=== PATIENT | female | born 1960 | race Caucasian/White ===

== ENCOUNTER 2016-10-14 06:36 | Emergency (ER) | payer MEDICAID, OTHER ==
[~2016-10-14] VITALS: Ht 157.5 cm; Wt 56.8 kg
[~2016-10-14 06:36] MED LIST: ALBU0.63 NEB; FOLI0.4T2 PO; GABA300C10 PO; METH40TA2 PO; ONDA4TAB13 SL; TIOT18CA INH; Vit B 12 PO
[2016-10-14] MEDS ORDERED: ONDANSETRON ODT 4 MG ONE (06:57)
[2016-10-14] MEDS ORDERED: HYDROcodone/APAP 5/325 TABLET ONE (06:58)
[2016-10-14] MEDS ORDERED: HYDROcodone/APAP 5/325 TABLET PO ONE (07:00)
[2016-10-14] MEDS ORDERED: GABAPENTIN 300 MG CAPSULE PO ONE (07:00)
[2016-10-14] MEDS ORDERED: ONDANSETRON ODT 4 MG PO ONE (07:00)
[2016-10-14 07:45] VITALS: BP 103/75
== END 2016-10-14 07:52 | disposition home or self-care (01) ==
LOC: ED 07:01
DX: R11.0 Nausea (principal); G62.9 Polyneuropathy, unspecified
CPT/HCPCS: 99284; Q0162

== ENCOUNTER 2017-02-03 17:47 | Emergency (ER) | payer MEDICAID ==
[~2017-02-03] VITALS: Ht 157.5 cm; Wt 63.3 kg
[2017-02-03 18:35] VITALS: BP 168/95
[2017-02-03] MEDS ORDERED: ALBUTEROL/IPRATROPIUM 2.5MG/0.5MG, 3 ML ONE (18:58)
[2017-02-03] MEDS ORDERED: ALBUTEROL/IPRATROPIUM 2.5MG/0.5MG, 3 ML NPPB ONE (19:00)
[2017-02-03 19:12] LABS: BASOPHILS # (AUTO) 0.04 x10^3/uL (0-0.1); BASOPHILS % (AUTO) 1 % (0-1); EOSINOPHILS # (AUTO) 0.11 x10^3/uL (0-0.4); EOSINOPHILS % (AUTO) 2 % (1-7); LYMPHOCYTES # (AUTO) 3.05 x10^3/uL (1-3.4); LYMPHOCYTES % (AUTO) 41 % (22-44); MD NO; MEAN CORPUSCULAR HEMOGLOBIN 31.3 pg (27.0-34.8); MEAN CORPUSCULAR HGB CONC 33.8 g/dL (32.4-35.8); MEAN CORPUSCULAR VOLUME 92.5 fL (80-100); MEAN PLATELET VOLUME 8.6 fL (7.4-10.4); MONOCYTES # (AUTO) 0.61 x10^3/uL (0.2-0.8); MONOCYTES % (AUTO) 8 % (2-9); NEUTROPHILS # (AUTO) 3.63 x10^3/uL (1.8-6.8); NEUTROPHILS % (AUTO) 49 % (42-75); PLATELET COUNT 168 x10^3/uL (130-400); RED BLOOD COUNT 4.52 x10^6/uL (3.82-5.3); RED CELL DISTRIBUTION WIDTH 13.2 % (9.6-15.2)
[2017-02-03 19:18] LABS: ALBUMIN 3.4 g/dL (3.4-5.0); ANION GAP 6 mmol/L (5-15); CALCIUM 9.1 mg/dL (8.5-10.1); CHLORIDE 112 mmol/L (98-107); CREATININE 1.15 mg/dL (0.55-1.02)
[2017-02-03 19:22] LABS: TROPONIN I < 0.015 ng/mL (0.000-0.045)
[2017-02-03] MEDS ORDERED: HYDROcodone/APAP 5/325 TABLET PO ONE (19:30)
[2017-02-03] MEDS ORDERED: HYDROcodone/APAP 5/325 TABLET ONE (19:49)
== END 2017-02-03 20:30 | disposition home or self-care (01) ==
LOC: ED 20:15
DX: J44.1 Chronic obstructive pulmonary disease with (acute) exacerbation (principal); F17.210 Nicotine dependence, cigarettes, uncomplicated
CPT/HCPCS: 36415; 71020; 80048; 82040; 84484; 85025; 93005; 94640; 99285; J7512; J7620

== ENCOUNTER 2017-11-19 18:06 | Emergency (ER) | payer MEDICARE, MEDICAID ==
[~2017-11-19] VITALS: Ht 157.5 cm; Wt 70.0 kg
[~2017-11-19 18:06] MED LIST changes: +ONDA4TAB10 PO
[2017-11-19] MEDS ORDERED: SODIUM CHLORIDE FLUSH 10ML SYR IVF ONE (18:30)
[2017-11-19 18:58] LABS: BASOPHILS # (AUTO) 0.04 x10^3/uL (0-0.1); BASOPHILS % (AUTO) 0 % (0-1); EOSINOPHILS # (AUTO) 0.12 x10^3/uL (0-0.4); EOSINOPHILS % (AUTO) 1 % (1-7); LYMPHOCYTES # (AUTO) 3.02 x10^3/uL (1-3.4); LYMPHOCYTES % (AUTO) 31 % (22-44); MD NO; MEAN CORPUSCULAR HEMOGLOBIN 31.1 pg (27.0-34.8); MEAN CORPUSCULAR HGB CONC 33.5 g/dL (32.4-35.8); MEAN CORPUSCULAR VOLUME 92.7 fL (80-100); MEAN PLATELET VOLUME 9.3 fL (7.4-10.4); MONOCYTES # (AUTO) 0.73 x10^3/uL (0.2-0.8); MONOCYTES % (AUTO) 7 % (2-9); NEUTROPHILS % (AUTO) 60 % (42-75); PLATELET COUNT 154 x10^3/uL (130-400); RED BLOOD COUNT 4.12 x10^6/uL (3.82-5.3); RED CELL DISTRIBUTION WIDTH 14.6 % (9.6-15.2)
[2017-11-19 19:11] LABS: ALBUMIN 3.1 g/dL (3.4-5.0); ANION GAP 12 mmol/L (5-15); CHLORIDE 108 mmol/L (98-107)
[2017-11-19 19:16] LABS: ALANINE AMINOTRANSFERASE 31 U/L (12-78); ALKALINE PHOSPHATASE 113 U/L (45-117); BILIRUBIN,TOTAL 0.2 mg/dL (0.2-1.0); CREATININE 1.18 mg/dL (0.55-1.02); TOTAL PROTEIN 7.3 g/dL (6.4-8.2)
[2017-11-19 19:26] LABS: MICROSCOPIC INDICATED
[2017-11-19] MEDS ORDERED: MORPHINE SULFATE 4 MG/ML, 1ML IVPush PRN (19:30)
[2017-11-19] MEDS ORDERED: MORPHINE SULFATE 4 MG/ML, 1ML ONE (19:36)
[2017-11-19 19:38] LABS: CULTURE INDICATED? NO
[2017-11-19 21:24] VITALS: BP 139/77
== END 2017-11-19 21:27 | disposition home or self-care (01) ==
LOC: ED 21:10
DX: R19.7 Diarrhea, unspecified (principal); R06.00 Dyspnea, unspecified; J44.9 Chronic obstructive pulmonary disease, unspecified; M19.90 Unspecified osteoarthritis, unspecified site; Z86.19 Personal history of other infectious and parasitic diseases; Z59.0 Homelessness; F17.200 Nicotine dependence, unspecified, uncomplicated
CPT/HCPCS: 36415; 71045; 80053; 81001; 83605; 85025; 93005; 96374

== ENCOUNTER 2017-12-28 14:29 | Emergency (ER) | payer MEDICARE, MEDICAID ==
[~2017-12-28] VITALS: Ht 157.5 cm; Wt 74.2 kg
[2017-12-28] MEDS ORDERED: SODIUM CHLORIDE FLUSH 10ML SYR IVF ONE (15:00)
[2017-12-28 15:26] LABS: BASOPHILS # (AUTO) 0.03 x10^3/uL (0-0.1); BASOPHILS % (AUTO) 0 % (0-1); EOSINOPHILS # (AUTO) 0.25 x10^3/uL (0-0.4); EOSINOPHILS % (AUTO) 4 % (1-7); LYMPHOCYTES # (AUTO) 1.94 x10^3/uL (1-3.4); LYMPHOCYTES % (AUTO) 28 % (22-44); MD NO; MEAN CORPUSCULAR HEMOGLOBIN 31.2 pg (27.0-34.8); MEAN CORPUSCULAR HGB CONC 33.7 g/dL (32.4-35.8); MEAN CORPUSCULAR VOLUME 92.7 fL (80-100); MEAN PLATELET VOLUME 9.3 fL (7.4-10.4); MONOCYTES % (AUTO) 7 % (2-9); NEUTROPHILS # (AUTO) 4.26 x10^3/uL (1.8-6.8); NEUTROPHILS % (AUTO) 61 % (42-75); PLATELET COUNT 166 x10^3/uL (130-400); RED BLOOD COUNT 4.75 x10^6/uL (3.82-5.3); RED CELL DISTRIBUTION WIDTH 13.5 % (9.6-15.2)
[2017-12-28 15:30] LABS: ALANINE AMINOTRANSFERASE 24 U/L (12-78); ALBUMIN 3.4 g/dL (3.4-5.0); ANION GAP 10 mmol/L (5-15); CALCIUM 8.5 mg/dL (8.5-10.1); CHLORIDE 109 mmol/L (98-107); CREATININE 1.31 mg/dL (0.55-1.02)
[2017-12-28] MEDS ORDERED: ACETAMINOPHEN 325 MG TABLET PO ONE (15:30)
[2017-12-28 15:32] LABS: ALKALINE PHOSPHATASE 128 U/L (45-117); BILIRUBIN,TOTAL 0.2 mg/dL (0.2-1.0); TOTAL PROTEIN 7.9 g/dL (6.4-8.2)
[2017-12-28] MEDS ORDERED: ACETAMINOPHEN 500 MG TABLET ONE (15:45)
[2017-12-28 16:13] LABS: CULTURE INDICATED? YES; MICROSCOPIC INDICATED
[2017-12-28] MEDS ORDERED: SODIUM CHLORIDE 0.9% 1,000ML IVBOLUS ONE (16:30)
[2017-12-28] MEDS ORDERED: CEFTRIAXONE PMX 1GM/50ML 50 ML ONE (16:55)
[2017-12-28] MEDS ORDERED: MORPHINE SULFATE 4 MG/ML, 1ML ONE (16:56)
[2017-12-28] MEDS ORDERED: MORPHINE SULFATE 4 MG/ML, 1ML IVPush ONE (17:00)
[2017-12-28] MEDS ORDERED: CEFTRIAXONE PMX 1GM/50ML 50 ML IV ONE (17:00)
[2017-12-28 18:03] VITALS: BP 149/99
== END 2017-12-28 18:22 | disposition home or self-care (01) ==
LOC: ED 18:20
DX: N10 Acute pyelonephritis (principal); N39.0 Urinary tract infection, site not specified; J44.9 Chronic obstructive pulmonary disease, unspecified; Z88.6 Allergy status to analgesic agent
CPT/HCPCS: 36415; 71045; 80053; 81001; 85025; 87086; 93005; 96365; 96375; 99284; J0696; J7030

== ENCOUNTER 2018-01-07 11:35 | Emergency (ER) | payer MEDICARE, MEDICAID ==
[~2018-01-07] VITALS: Ht 157.5 cm; Wt 73.2 kg
[2018-01-07 12:40] LABS: BASOPHILS # (AUTO) 0.05 x10^3/uL (0-0.1); BASOPHILS % (AUTO) 1 % (0-1); EOSINOPHILS # (AUTO) 0.18 x10^3/uL (0-0.4); EOSINOPHILS % (AUTO) 2 % (1-7); LYMPHOCYTES # (AUTO) 2.27 x10^3/uL (1-3.4); LYMPHOCYTES % (AUTO) 29 % (22-44); MD NO; MEAN CORPUSCULAR HEMOGLOBIN 31.5 pg (27.0-34.8); MEAN CORPUSCULAR HGB CONC 33.8 g/dL (32.4-35.8); MEAN PLATELET VOLUME 8.6 fL (7.4-10.4); MONOCYTES # (AUTO) 0.45 x10^3/uL (0.2-0.8); MONOCYTES % (AUTO) 6 % (2-9); NEUTROPHILS # (AUTO) 4.99 x10^3/uL (1.8-6.8); NEUTROPHILS % (AUTO) 63 % (42-75); PLATELET COUNT 187 x10^3/uL (130-400); RED BLOOD COUNT 4.83 x10^6/uL (3.82-5.3); RED CELL DISTRIBUTION WIDTH 13.2 % (9.6-15.2)
[2018-01-07 12:52] LABS: ALANINE AMINOTRANSFERASE 35 U/L (12-78); ALBUMIN 3.7 g/dL (3.4-5.0); ANION GAP 7 mmol/L (5-15); CALCIUM 8.9 mg/dL (8.5-10.1); CHLORIDE 109 mmol/L (98-107); CREATININE 1.11 mg/dL (0.55-1.02)
[2018-01-07 12:54] LABS: ALKALINE PHOSPHATASE 111 U/L (45-117); BILIRUBIN,TOTAL 0.5 mg/dL (0.2-1.0); TOTAL PROTEIN 8.4 g/dL (6.4-8.2)
[2018-01-07] MEDS ORDERED: MORPHINE SULFATE 4 MG/ML, 1ML ONE (13:17)
[2018-01-07 13:20] LABS: CLOSTRIDIUM DIFFICILE ANTIGEN NEGATIVE; CLOSTRIDIUM DIFFICILE TOXIN NEGATIVE (Negative)
[2018-01-07] MEDS: MORPHINE SULFATE 4 MG/ML, 1ML IVPush PRN ×2 (13:28→14:25)
[2018-01-07 14:31] LABS: MICROSCOPIC AUTO
[2018-01-07 14:34] LABS: CULTURE INDICATED? NO
[2018-01-07 16:23] VITALS: BP 132/79
== END 2018-01-07 16:58 | disposition home or self-care (01) ==
LOC: ED 12:52
DX: R19.7 Diarrhea, unspecified (principal); R11.2 Nausea with vomiting, unspecified; J44.9 Chronic obstructive pulmonary disease, unspecified; M19.90 Unspecified osteoarthritis, unspecified site; G62.9 Polyneuropathy, unspecified; N28.9 Disorder of kidney and ureter, unspecified; Z79.82 Long term (current) use of aspirin
CPT/HCPCS: 36415; 80053; 81001; 83690; 85025; 87046; 87252; 87324; 93005; 96374; 96376

== ENCOUNTER 2018-09-16 15:37 | Inpatient (IN) | payer MEDICARE, MEDICAID ==
[~2018-09-16] VITALS: Ht 157.5 cm; Wt 75.4 kg
[2018-09-20 12:50] VITALS: BP 143/82
== END 2018-09-20 17:19 | disposition home health service (06) | DRG 492 ==
LOC: OR 17:56 → EDIP 18:27 → 4NOR 20:25 → DCLOUNGE 09-20 17:00
PROVIDERS: ADMIT Internal Medicine; ATTEND Internal Medicine
PROC: 2W3RX1Z Immobilization of Left Lower Leg using Splint (ICD-10-PCS; 2018-09-16)
PROC: 3E0T3BZ Introduction of Anesthetic Agent into Peripheral Nerves and Plexi, Percutaneous Approach (ICD-10-PCS; principal; 2018-09-18)
PROC: 0QSK04Z Reposition Left Fibula with Internal Fixation Device, Open Approach (ICD-10-PCS; 2018-09-18)
PROC: 0QSH04Z Reposition Left Tibia with Internal Fixation Device, Open Approach (ICD-10-PCS; 2018-09-18)
PROC: 0SSG04Z Reposition Left Ankle Joint with Internal Fixation Device, Open Approach (ICD-10-PCS; 2018-09-18)
DX: S82.842A Displaced bimalleolar fracture of left lower leg, initial encounter for closed fracture (principal); N17.0 Acute kidney failure with tubular necrosis; E86.0 Dehydration; Z71.6 Tobacco abuse counseling; F15.10 Other stimulant abuse, uncomplicated; G62.9 Polyneuropathy, unspecified; J44.9 Chronic obstructive pulmonary disease, unspecified; K72.90 Hepatic failure, unspecified without coma; K83.8 Other specified diseases of biliary tract; M19.90 Unspecified osteoarthritis, unspecified site; N18.2 Chronic kidney disease, stage 2 (mild); W18.30XA Fall on same level, unspecified, initial encounter; X50.1XXA Overexertion from prolonged static or awkward postures, initial encounter; Y92.89 Other specified places as the place of occurrence of the external cause; Z82.49 Family history of ischemic heart disease and other diseases of the circulatory system; Z83.3 Family history of diabetes mellitus; Z85.42 Personal history of malignant neoplasm of other parts of uterus; Z90.49 Acquired absence of other specified parts of digestive tract; Z88.8 Allergy status to other drugs, medicaments and biological substances; Q66.89 Other specified congenital deformities of feet; Z72.0 Tobacco use
CPT/HCPCS: 36415; 71045; 76000; 76700; 80053; 80074; 80307; 85025; 87521; 93005; 96374; 99285; C1713; G0378; J0690; J1100; J1650; J2250; J2405; J2704; J3010; J2270; J2370; J7030

== ENCOUNTER 2019-03-07 17:38 | Emergency (ER) | payer MEDICARE, MEDICAID ==
[~2019-03-07] VITALS: Ht 157.5 cm; Wt 70.5 kg
[~2019-03-07 17:38] MED LIST changes: +ALBU90AE INH; +MELO7.5T31 PO; +OXYC5TAB3 PO; +TRAM50TA2 PO; +[UNRECOGNIZED DRUG - REMARK] INH
[2019-03-07 18:16] VITALS: BP 127/89
[2019-03-07] MEDS ORDERED: PROPARACAINE OPHTH 0.5%, 15ML EACHEYE ONE (18:30)
[2019-03-07] MEDS ORDERED: FLUORESCEIN OPHTHALMIC 1 MG STRIP EACHEYE ONE (18:30)
[2019-03-07] MEDS ORDERED: FLUORESCEIN OPHTHALMIC 1 MG STRIP ONE (18:33)
[2019-03-07] MEDS ORDERED: PROPARACAINE OPHTH 0.5%, 15ML ONE (18:33)
--- NOTE | 2019-03-07 18:34 | NUR ---
PT HERE WITH C/O "EYE PAIN IN BOTH EYES. I CAN'T OPEN THEM OR SEE. I WASHED MY HAIR WITH LICE SHAMPOO AND APPLE CIDER VINEGAR AND NOW THEY BURN SO BAD." MD AT BEDSIDE FOR EXAM.
--- NOTE | 2019-03-07 18:45 | NUR ---
THIS RN TO BEDSIDE, PT STATES "MY EYES FEEL SO MUCH BETTER." AD WOOD.
--- NOTE | 2019-03-07 19:15 | NUR ---
ALL RESULTS BACK AT THIS TIME, CHART UP FOR RECHECK.
--- NOTE | 2019-03-07 20:09 | NUR ---
TECH AT BEDSIDE FOR EYE IRRIGATION.
--- NOTE | 2019-03-07 20:33 | NUR ---
THIS RN AND TECH AT BEDSIDE FOR IRRIGATION WITH JAY LENS. ATTEMPTED TO PLACE LENS AND PT PROMPTLY REMOVED AND SHOUTED AT STAFF "HOW DO YOU EXPECT ME TO DO THAT WITH NO PAIN MEDS, SEDATE ME." PT EDUCATED ON NEED TO IRRIGATE TO REMOVE APPLE CIDER VINEGAR THAT PT PLACED IN EYE LAST NIGHT. THIS RN HELD PT'S EYE LID OPEN WHILE TECH IRRIGATED. PT CONSTANTLY SHOUTING AT STAFF "YOU'RE DROWNING ME, STOP RIGHT NOW I CAN'T TAKE IT. THIS IS MAKING ME HEADACHE SO MUCH WORSE." PT ABLE TO TOLERATE APPROX. 50ML AT A TIME REQUIRING A 5 MINUTE BREAK IN BETWEEN. THIS RN ATTEMPTING TO EDUCATE PT AND PT INTERRUPTING THIS RN STATING "WELL WHAT THE HELL IS TAKING YOU SO LONG, JUST SHUT UP AND DO IT ALREADY." STAFF ATTEMPTED TO IRRIGATE AGAIN WITH THE SAME RESULTS OF PT TOLERATING APPROX. 50 MLS AGAIN. THIS RN AGAIN ATTEMPTED TO IRRIGATE EYES AND PT STATES "YOU'RE NASTY, YOU'RE BEING A BITCH WHO IS STEALING MY PAIN MEDS." PT EDUCATED THAT THE MD DID NOT ORDER ANY PAIN MEDS, PT AGAIN INTERRUPTED THIS RN STATING "YOU REMIND ME OF SOMEONE AND DON'T MAKE ME TELL YOU WHAT I DID TO THEM." THIS RN AND TECH AT BEDSIDE EDUCATED PT THAT STAFF WILL NOT TOLERATE THREATS. THIS RN LEFT ROOM AND GRABBED ANOTHER TECH TO ASSIST WITH IRRIGATION.
--- NOTE | 2019-03-07 20:56 | NUR ---
Patient/Caregiver given discharge instructions and they have confirmed that they understand the instructions. Patient ambulatory with steady gait.
--- NOTE | 2019-03-07 21:00 | NUR ---
REPORT GIVEN TO VITALIY COOK. CARE TRANSFERRED.
== END 2019-03-07 21:23 | disposition home or self-care (01) ==
LOC: ED 18:00
DX: H10.213 Acute toxic conjunctivitis, bilateral (principal); J44.9 Chronic obstructive pulmonary disease, unspecified; F17.200 Nicotine dependence, unspecified, uncomplicated
CPT/HCPCS: 99283

== ENCOUNTER 2019-03-14 11:25 | Emergency (ER) | payer MEDICARE, MEDICAID ==
[~2019-03-14] VITALS: Ht 162.6 cm; Wt 68.0 kg
[2019-03-14] MEDS ORDERED: SODIUM CHLORIDE 0.9% 1,000ML IVBOLUS ONE (12:00)
[2019-03-14] MEDS ORDERED: SODIUM CHLORIDE FLUSH 10ML SYR IVF ONE (12:00)
[2019-03-14 12:20] LABS: BASOPHILS # (AUTO) 0.03 x10^3/uL (0-0.1); BASOPHILS % (AUTO) 0 % (0-1); EOSINOPHILS # (AUTO) 0.17 x10^3/uL (0-0.4); EOSINOPHILS % (AUTO) 2 % (1-7); LYMPHOCYTES # (AUTO) 2.26 x10^3/uL (1-3.4); LYMPHOCYTES % (AUTO) 24 % (22-44); MD NO; MEAN CORPUSCULAR HEMOGLOBIN 30.4 pg (27.0-34.8); MEAN CORPUSCULAR HGB CONC 33.4 g/dL (32.4-35.8); MEAN CORPUSCULAR VOLUME 91.1 fL (80-100); MEAN PLATELET VOLUME 9.4 fL (7.4-10.4); MONOCYTES % (AUTO) 5 % (2-9); NEUTROPHILS # (AUTO) 6.37 x10^3/uL (1.8-6.8); NEUTROPHILS % (AUTO) 68 % (42-75); PLATELET COUNT 182 x10^3/uL (130-400); RED BLOOD COUNT 4.41 x10^6/uL (3.82-5.3); RED CELL DISTRIBUTION WIDTH 14.1 % (9.6-15.2)
[2019-03-14 12:32] LABS: ALANINE AMINOTRANSFERASE 24 U/L (12-78); ALBUMIN 2.9 g/dL (3.4-5.0); ANION GAP 5 mmol/L (5-15); CALCIUM 8.7 mg/dL (8.5-10.1); CHLORIDE 111 mmol/L (98-107); CREATININE 1.16 mg/dL (0.55-1.02)
[2019-03-14 12:34] LABS: ALKALINE PHOSPHATASE 137 U/L (45-117); BILIRUBIN,TOTAL 0.2 mg/dL (0.2-1.0); TOTAL PROTEIN 7.5 g/dL (6.4-8.2)
--- NOTE | 2019-03-14 12:39 | NUR ---
UOB TO COMMODE WITH SMALL AMOUNT OF FORMED STOOL. PT C/O ABDOMINAL AND HEAD PAIN. IV FLUIDS INFUSING PER ORDERS
[2019-03-14] MEDS ORDERED: KETOROLAC 30 MG/1 ML ONE (13:13)
--- NOTE | 2019-03-14 13:25 | NUR ---
MEDICATED FOR PAIN NOTED ON APR. AWAITING CT
[2019-03-14] MEDS ORDERED: KETOROLAC 30 MG/1 ML IVPush ONE (13:30)
[2019-03-14] MEDS ORDERED: OMNIPAQUE 350 MG/ML, 100ML BOTTLE ONE (14:07)
--- NOTE | 2019-03-14 14:14 | NUR ---
BREAK RN: PT RESTING IN ROOM. REGULAR RESP. NO ACUTE DISTRESS NOTED. VS STABLE. WILL CONTINUE TO MONITOR WHILE PRIMARY RN IS ON BREAK.
[2019-03-14 15:05] VITALS: BP 149/77
[2019-03-14] MEDS ORDERED: HYDROcodone/APAP 5/325 TABLET ONE (15:15)
--- NOTE | 2019-03-14 15:17 | NUR ---
MEDICATED FOR ABDOMINAL PAIN NOTED ON APR. TO BE DISCHARGED
[2019-03-14] MEDS ORDERED: HYDROcodone/APAP 5/325 TABLET PO ONE (15:30)
== END 2019-03-14 15:56 | disposition home or self-care (01) ==
LOC: ED 14:19
DX: K52.89 Other specified noninfective gastroenteritis and colitis (principal); J44.9 Chronic obstructive pulmonary disease, unspecified
CPT/HCPCS: 36415; 74021; 74177; 80053; 83690; 85025; 93005; 96361; 96374; 99284; J1885; J7030; Q9967

== ENCOUNTER 2020-04-25 14:46 | Emergency (ER) | payer OTHER, MEDICAID ==
[~2020-04-25] VITALS: Ht 157.5 cm; Wt 64.7 kg
[~2020-04-25 14:46] MED LIST changes: -FOLI0.4T2 PO; +FOLI0.4T5 PO; -OXYC5TAB3 PO; +OXYC5TAB98 PO
[2020-04-25] MEDS ORDERED: ONDANSETRON 2MG/ML, 2ML IVPush ONE (15:30)
[2020-04-25] MEDS ORDERED: MORPHINE SULFATE 4 MG/ML, 1ML IVPush PRN (15:30)
[2020-04-25] MEDS ORDERED: SODIUM CHLORIDE 0.9% 1,000ML IVBOLUS ONE (15:30)
[2020-04-25] MEDS ORDERED: ONDANSETRON 2MG/ML, 2ML ONE (15:37)
[2020-04-25] MEDS ORDERED: MORPHINE SULFATE 4 MG/ML, 1ML ONE (15:37)
[2020-04-25 15:38] LABS: BASOPHILS % (AUTO) 1 % (0-1); EOSINOPHILS % (AUTO) 4 % (1-7); LYMPHOCYTES % (AUTO) 51 % (22-44); MEAN CORPUSCULAR HEMOGLOBIN 32.6 pg (27.0-34.8); MEAN CORPUSCULAR HGB CONC 33.5 g/dL (32.4-35.8); MEAN PLATELET VOLUME 8.5 fL (7.4-10.4); MONOCYTES % (AUTO) 5 % (2-9); NEUTROPHILS % (AUTO) 39 % (42-75); PLATELET COUNT 173 x10^3/uL (130-400); RED BLOOD COUNT 4.53 x10^6/uL (3.82-5.3); RED CELL DISTRIBUTION WIDTH 13.9 % (9.6-15.2)
[2020-04-25 15:39] LABS: MD NO
[2020-04-25 15:51] LABS: ALANINE AMINOTRANSFERASE 27 U/L (12-78); ALBUMIN 3.3 g/dL (3.4-5.0); ANION GAP 7 mmol/L (5-15); CALCIUM 8.7 mg/dL (8.5-10.1); CHLORIDE 110 mmol/L (98-107); CREATININE 0.96 mg/dL (0.55-1.02)
[2020-04-25 15:53] LABS: ALKALINE PHOSPHATASE 76 U/L (45-117); BILIRUBIN,TOTAL 0.2 mg/dL (0.2-1.0); TOTAL PROTEIN 7.9 g/dL (6.4-8.2)
--- NOTE | 2020-04-25 15:58 | NUR ---
cc of "I dont feel good". symptoms of fever/chills, lost of taste and smell, muscle aches, OSHEA for 5 days. pt states daughted was positive for covid 1 month ago. BP low in triage and hypertensive in room, pt connected to phototypesetting equipment monitor and frequent BP to closely monitor. pt given warm blankets.
[2020-04-25] MEDS ORDERED: LAMO25TA9 PO (16:20)
[2020-04-25] MEDS ORDERED: FENO48TA10 PO (16:20)
[2020-04-25] MEDS ORDERED: LEVE500T8 PO (16:20)
[2020-04-25] MEDS ORDERED: ARIP5TAB13 PO (16:20)
[2020-04-25] MEDS ORDERED: MULT-334 PO (16:20)
[2020-04-25] MEDS ORDERED: VITA1TAB86 PO (16:20)
--- NOTE | 2020-04-25 16:35 | NUR ---
UA COLLECTED AND WALKED TO LAB. PT USED CANE TO AMBULATE TO RESTROOM INDEPENDENTLY
[2020-04-25 16:45] LABS: MICROSCOPIC AUTO
[2020-04-25] MEDS ORDERED: GABAPENTIN 400 MG CAPSULE ONE (17:19)
[2020-04-25] MEDS ORDERED: ONDANSETRON ODT 4 MG ONE (17:19)
[2020-04-25 17:21] VITALS: BP 114/86
[2020-04-25] MEDS ORDERED: GABAPENTIN 400 MG CAPSULE PO ONE (17:30)
[2020-04-25] MEDS ORDERED: ONDANSETRON ODT 4 MG PO ONE (18:00)
== END 2020-04-25 17:37 | disposition home or self-care (01) ==
LOC: ED 17:30
DX: G62.9 Polyneuropathy, unspecified (principal); M79.10 Myalgia, unspecified site; R10.9 Unspecified abdominal pain; J44.9 Chronic obstructive pulmonary disease, unspecified
CPT/HCPCS: 36415; 80053; 81001; 83690; 85025; 87086; 96361; 96374; 96375; 99283; J2270; J2405; J7030; Q0162

== ENCOUNTER 2020-05-20 12:37 | Emergency (ER) | payer MEDICAID, OTHER ==
[~2020-05-20] VITALS: Ht 157.5 cm; Wt 75.0 kg
[~2020-05-20 12:37] MED LIST changes: +ARIP5TAB13 PO; +FENO48TA10 PO; +LAMO25TA9 PO; +LEVE500T8 PO; +MULT-334 PO; +VITA1TAB86 PO
--- NOTE | 2020-05-20 12:49 | NUR ---
BIB [facility]. PT FOUND SITTING ON SIDEWALK IN [place], BYSTANDAR GOT PT UP AND CALLED 911. +ETOH. PT AMBULATORY, BUT UNSTEADY. 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 SPEACH SLURRED. [facility]. PT CHANGED INTO GOWN AND CONNECTED TO MONITORING. PT PLACED ON BASELING OXYGEN 2L. CALL LIGHT IN [place].
--- NOTE | 2020-05-20 13:24 | NUR ---
med requested from pharmacy
[2020-05-20] MEDS ORDERED: ALBUTEROL HFA 90 MCG/SPRAY INH PRN (13:30)
--- NOTE | 2020-05-20 13:51 | NUR ---
MED RECEIVED FROM PHARMACY AND ADMIN. PT MOSTLY SLEEPING, AWAKENS WHEN SPOKEN TO, THE FALLS BACK ASLEEP. RESP EVEN AND UNLABORED. CONNECTED TO MONITORING. CALL [facility] IN [place]. PT TO BE MTF.
--- NOTE | 2020-05-20 14:51 | NUR ---
PT SLEEPING ON GURNEY. RESP EVEN AND UNLABORED. PT CONNECTED TO MONITORING.
--- NOTE | 2020-05-20 16:09 | NUR ---
PT SLEEPING ON GURNEY. RESP EVEN AND UNLABORED. PT CONNECTED TO MONITORING.
--- NOTE | 2020-05-20 17:17 | NUR ---
PT AWOKE UPON RN ENTRY TO ROOM. PT STATES SHE WAS NOT DRUNK, PT STARTED CRYING. PT INCONSOLABLE AT THIS TIME. PT WANTS TO TALK TO MD.
--- NOTE | 2020-05-20 17:19 | NUR ---
ERMD AT BEDSIDE FOR REASSESSMENT.
[2020-05-20] MEDS ORDERED: LORazepam 1MG TABLET ONE (17:22)
[2020-05-20] MEDS ORDERED: LORazepam 1MG TABLET PO ONE (17:30)
--- NOTE | 2020-05-20 17:31 | NUR ---
[employer] PER APR. PT AMBULATED TO RESTROOM WITH STEADY GAIT AND OWN CANE.
--- NOTE | 2020-05-20 17:32 | NUR ---
PT HAS NOT BEEN CRYING AFTER ERMD AT BEDSIDE.
[2020-05-20 18:05] VITALS: BP 110/65
== END 2020-05-20 18:09 | disposition home or self-care (01) ==
LOC: ED 14:37
DX: F10.120 Alcohol abuse with intoxication, uncomplicated (principal); R06.2 Wheezing; Y90.0 Blood alcohol level of less than 20 mg/100 ml
CPT/HCPCS: 94640; 99283

== ENCOUNTER 2020-07-12 14:58 | Emergency (ER) | payer OTHER ==
[~2020-07-12] VITALS: Ht 157.5 cm; Wt 63.5 kg
[2020-07-12 16:46] LABS: BASOPHILS % (AUTO) 1 % (0-1); EOSINOPHILS % (AUTO) 3 % (1-7); LYMPHOCYTES % (AUTO) 31 % (22-44); MEAN CORPUSCULAR HEMOGLOBIN 31.3 pg (27.0-34.8); MEAN CORPUSCULAR HGB CONC 33.2 g/dL (32.4-35.8); MEAN PLATELET VOLUME 8.2 fL (7.4-10.4); MONOCYTES % (AUTO) 14 % (2-9); NEUTROPHILS % (AUTO) 52 % (42-75); PLATELET COUNT 152 x10^3/uL (130-400); RED BLOOD COUNT 4.54 x10^6/uL (3.82-5.3); RED CELL DISTRIBUTION WIDTH 13.4 % (9.6-15.2)
[2020-07-12 16:49] LABS: MD NO
[2020-07-12 16:57] LABS: ALANINE AMINOTRANSFERASE 24 U/L (12-78); ALBUMIN 3.7 g/dL (3.4-5.0); ANION GAP 7 mmol/L (5-15); CALCIUM 9.3 mg/dL (8.5-10.1); CHLORIDE 106 mmol/L (98-107); CREATININE 1.15 mg/dL (0.55-1.02)
[2020-07-12 17:01] LABS: ALKALINE PHOSPHATASE 87 U/L (45-117); BILIRUBIN,TOTAL 0.4 mg/dL (0.2-1.0); TOTAL PROTEIN 8.5 g/dL (6.4-8.2); TROPONIN I < 0.015 ng/mL (0.000-0.045)
--- NOTE | 2020-07-12 17:10 | NUR ---
assumed care of pt. pt here c/o productive cough for several days pt has a hx pf COPD and is on O2 at home. pt reports that she is still an ative smoker and that she removes her O2 to smoke pt speaking full sentences. no family at bedside
[2020-07-12] MEDS ORDERED: HYDROcodone/APAP 5/325 TABLET PO ONE (17:30)
[2020-07-12] MEDS ORDERED: HYDROcodone/APAP 5/325 TABLET ONE (17:54)
--- NOTE | 2020-07-12 18:14 | NUR ---
pt has been sleeping. easily arousable for medication administration pt states that she did not drive here. pt advised not to drive after [place]. pt verbalized understanding
[2020-07-12] MEDS ORDERED: ALBUTEROL/IPRATROPIUM 2.5MG/0.5MG, 3 ML ONE ×2 (18:44→19:38)
--- NOTE | 2020-07-12 18:45 | NUR ---
pt still having audible exp. wheezing. dozing intermittently. easily arousable breathing tx initiated per order bedside report to Karina BURKS
--- NOTE | 2020-07-12 18:49 | NUR ---
report from Ember BURKS
[2020-07-12] MEDS: ALBUTEROL/IPRATROPIUM 2.5MG/0.5MG, 3 ML NPPB SCH ×2 (18:52→19:44)
[2020-07-12 21:02] VITALS: BP 126/74
--- NOTE | 2020-07-12 21:02 | NUR ---
Patient given discharge instructions and they have confirmed that they understand the instructions. Patient ambulatory with steady gait and fww. NAD, all questions answered appropriately, denies additional needs at this time. No personal belongings left in room after discharge. pt given taxi voucher home. pt O2 89-91% on RA. pt states she has oxygen tanks at home that are too big to bring out with her and pt insists she will be okay until arriving home. aware and okay with dc.
== END 2020-07-12 21:12 | disposition home or self-care (01) ==
LOC: ED 18:02
DX: J43.9 Emphysema, unspecified (principal); R07.9 Chest pain, unspecified; M19.90 Unspecified osteoarthritis, unspecified site; F17.200 Nicotine dependence, unspecified, uncomplicated
CPT/HCPCS: 36415; 71045; 80053; 84484; 85025; 93005; 94640; 99284; J7512

== ENCOUNTER 2020-10-25 22:40 | Emergency (ER) | payer OTHER ==
[~2020-10-25] VITALS: Ht 157.5 cm; Wt 75.0 kg
[2020-10-26 00:55] LABS: MICROSCOPIC AUTO
[2020-10-26 01:07] LABS: BASOPHILS % (AUTO) 1 % (0-1); EOSINOPHILS % (AUTO) 2 % (1-7); LYMPHOCYTES % (AUTO) 29 % (22-44); MEAN CORPUSCULAR HEMOGLOBIN 31.3 pg (27.0-34.8); MEAN CORPUSCULAR HGB CONC 33.5 g/dL (32.4-35.8); MEAN PLATELET VOLUME 9.1 fL (7.4-10.4); MONOCYTES % (AUTO) 7 % (2-9); NEUTROPHILS % (AUTO) 62 % (42-75); PLATELET COUNT 142 x10^3/uL (130-400); RED BLOOD COUNT 4.26 x10^6/uL (3.82-5.3); RED CELL DISTRIBUTION WIDTH 13.4 % (9.6-15.2)
[2020-10-26 01:15] LABS: ALANINE AMINOTRANSFERASE 23 U/L (12-78); ALBUMIN 3.1 g/dL (3.4-5.0); ANION GAP 3 mmol/L (5-15); CALCIUM 9.3 mg/dL (8.5-10.1); CHLORIDE 105 mmol/L (98-107); CREATININE 1.05 mg/dL (0.55-1.02)
[2020-10-26 01:17] LABS: ALKALINE PHOSPHATASE 95 U/L (45-117); BILIRUBIN,TOTAL 0.3 mg/dL (0.2-1.0)
--- NOTE | 2020-10-26 02:00 | NUR ---
pt to room from lobby.
--- NOTE | 2020-10-26 02:01 | NUR ---
c/o abd pain in upper middle area and back pain 1 week. pt ambulatory but using wheelchair to get to room. family with pt.
[2020-10-26] MEDS ORDERED: ACETAMINOPHEN 325 MG TABLET ONE (02:29)
[2020-10-26] MEDS ORDERED: ACETAMINOPHEN 325 MG TABLET PO ONE (02:30)
[2020-10-26] MEDS ORDERED: ONDANSETRON ODT 4 MG ONE (02:55)
[2020-10-26 03:00] VITALS: BP 169/77
[2020-10-26] MEDS ORDERED: ONDANSETRON ODT 4 MG PO ONE (03:00)
--- NOTE | 2020-10-26 03:06 | NUR ---
Patient given discharge instructions and they have confirmed that they understand the instructions. Patient ambulatory with steady gait. NAD, all questions answered appropriately, denies additional needs at this time. No personal belongings left in room after discharge.
== END 2020-10-26 03:08 | disposition home or self-care (01) ==
LOC: ED 23:59
DX: N30.00 Acute cystitis without hematuria (principal); R10.84 Generalized abdominal pain; M54.5 Low back pain; J44.9 Chronic obstructive pulmonary disease, unspecified; M19.90 Unspecified osteoarthritis, unspecified site; F17.200 Nicotine dependence, unspecified, uncomplicated
CPT/HCPCS: 36415; 80053; 81001; 83690; 85025; 87086; 99283; Q0162